=== PATIENT | female | born 1980 | race Caucasian/White ===

== ENCOUNTER 2016-09-22 22:02 | Inpatient (IN) | payer MEDICAID ==
[~2016-09-22] VITALS: Ht 165.1 cm; Wt 70.8 kg
[2016-09-22] MEDS ORDERED: TRAZ-144 PO (22:16)
[2016-09-22] MEDS ORDERED: VIST50 PO (22:16)
[2016-09-22] MEDS ORDERED: OLAN10TA3 PO (22:16)
[2016-09-22] MEDS ORDERED: GABA-533 PO (22:16)
[2016-09-22] MEDS ORDERED: ALPR0.5T8 PO (22:16)
[2016-09-22] MEDS ORDERED: BUPR1FIL3 SL (22:16)
[2016-09-22] MEDS ORDERED: LEVE500T53 PO (22:17)
[2016-09-22 22:34] LABS: BASOPHILS # (AUTO) 0.01 K/uL (0.00-0.20); BASOPHILS % (AUTO) 0.1 % (0.0-2.0); EOSINOPHILS # (AUTO) 0.21 K/uL (0.00-0.70); EOSINOPHILS % (AUTO) 2.48 % (1.0-6.0); HEMATOCRIT 28.9 % (36-46); HEMOGLOBIN 9.7 g/dL (12.0-16.0); LYMPHOCYTES # (AUTO) 0.8 K/uL (1.0-4.8); MEAN CORPUSCULAR HEMOGLOBIN 26.3 pg (26.0-34.0); MEAN CORPUSCULAR HGB CONC 33.5 G/dL (31.0-37.0); MEAN CORPUSCULAR VOLUME 79 fL (80-100); MONOCYTES # (AUTO) 0.5 K/uL (0.1-1.0); MONOCYTES % (AUTO) 5.7 % (2.0-9.0); NEUTROPHILS # (AUTO) 6.8 K/uL (1.8-7.7); NEUTROPHILS % (AUTO) 81.7 % (40.0-70.0); PLATELET COUNT (AUTO) 396 K/uL (150-450); RED BLOOD CELL COUNT(AUTO) 3.67 MIL/uL (4.00-5.20); RED CELL DISTRIBUTION WIDTH 18.3 % (11.5-14.5); WHITE BLOOD COUNT (AUTO) 8.3 K/uL (4.5-11.0)
[2016-09-22 22:35] LABS: RBC MORPHOLOGY COMMENT ABNORMAL RBC MORPH
[2016-09-22 22:42] LABS: ANION GAP 13 mmol/L (8-16); CARBON DIOXIDE 26 mmol/L (22-29); CHLORIDE 101 mmol/L (98-107); CREATININE 0.79 mg/dL (0.60-1.30); GLOMERULAR FILTR. RATE CALC > 60 mL/min (>60); POTASSIUM 3.9 mmol/L (3.5-5.1); SODIUM SERUM 140 mmol/L (136-145); UREA NITROGEN, BLOOD 13 mg/dL (7-18)
[2016-09-22 22:49] LABS: ALANINE AMINOTRANSFERASE 25 U/L (12-78); ALBUMIN 3.6 g/dL (3.4-5.0); ASPARTATE AMINOTRANSFERASE 24 U/L (15-37); BILIRUBIN,TOTAL 0.6 mg/dL (0.1-1.0); TOTAL PROTEIN, SERUM 7.8 g/dL (6.4-8.2)
[2016-09-22 23:02] LABS: SALICYLATE < 2.8 mg/dL (2.8-20.0)
[2016-09-22 23:06] LABS: ACETAMINOPHEN < 2 mcg/mL (10-30)
[2016-09-22] MEDS ORDERED: ZOLPIDEM TARTRATE 10 MG TABLET PO PRN (23:45)
[2016-09-23 03:01] VITALS: BP 113/85
[2016-09-23 08:31] VITALS: BP 121/76
[2016-09-23] MEDS: LevETIRAcetam 500 MG TABLET PO SCH ×3 (08:33→17:14)
[2016-09-23] MEDS: NICOTINE 21 MG/24 HOUR PATCH TD SCH (08:33)
[2016-09-23] MEDS: GABAPENTIN 400 MG CAPSULE PO SCH ×3 (08:34→17:14)
[2016-09-23] MEDS: BACITRACIN 28.4 GM OINTMENT TP SCH ×2 (08:35→17:17)
[2016-09-23] MEDS ORDERED: OLANZapine 5 MG TABLET PO SCH (09:00)
[2016-09-23] MEDS ORDERED: ALPRAZolam 0.5 MG TABLET PO SCH (09:00)
[2016-09-23] MEDS: LORazepam 0.5 MG TABLET PO SCH ×2 (12:37→17:13)
[2016-09-23 16:30] VITALS: BP 111/75
[2016-09-23] MEDS: OLANZapine 10 MG TABLET PO SCH (20:07)
[2016-09-23] MEDS ORDERED: TraZODone HCL 50 MG TABLET PO SCH (21:00)
[2016-09-24 04:42] VITALS: BP 116/81
[2016-09-24] MEDS: LORazepam 2 MG TABLET PO PRN ×2 (04:45→13:32)
[2016-09-24 08:05] VITALS: BP 127/66
[2016-09-24] MEDS: GABAPENTIN 400 MG CAPSULE PO SCH ×3 (08:46→16:36)
[2016-09-24] MEDS: NICOTINE 21 MG/24 HOUR PATCH TD SCH (08:46)
[2016-09-24] MEDS: LevETIRAcetam 500 MG TABLET PO SCH ×3 (08:46→16:36)
[2016-09-24] MEDS: FLUoxetine HCL 20 MG CAPSULE PO SCH (08:46)
[2016-09-24] MEDS: BACITRACIN 28.4 GM OINTMENT TP SCH ×2 (08:50→16:38)
[2016-09-24] MEDS ORDERED: LORazepam 0.5 MG TABLET PO SCH (09:00)
[2016-09-24] MEDS: OLANZapine 10 MG TABLET PO SCH (20:41)
[2016-09-25 04:35] VITALS: BP 124/77
[2016-09-25 08:13] VITALS: BP 120/72
[2016-09-25] MEDS: FLUoxetine HCL 20 MG CAPSULE PO SCH (08:29)
[2016-09-25] MEDS: GABAPENTIN 400 MG CAPSULE PO SCH ×3 (08:29→16:01)
[2016-09-25] MEDS: NICOTINE 21 MG/24 HOUR PATCH TD SCH (08:34)
[2016-09-25 08:44] LABS: APPEARANCE,URINE CLEAR (CLEAR); GLUCOSE, URINE (UA) NEGATIVE (NEGATIVE); KETONES,URINE NEGATIVE (NEGATIVE); LEUKOCYTE ESTERASE ,URINE NEGATIVE (NEGATIVE); OCCULT BLOOD,URINE NEGATIVE (NEGATIVE); PROTEIN,URINE NEGATIVE (NEGATIVE)
[2016-09-25 08:46] LABS: ADD UA MICROSCOPIC NO
[2016-09-25] MEDS: BACITRACIN 28.4 GM OINTMENT TP SCH ×2 (09:18→16:42)
[2016-09-25] MEDS: LevETIRAcetam 500 MG TABLET PO SCH ×3 (10:05→16:01)
[2016-09-25] MEDS: LORazepam 0.5 MG TABLET PO SCH ×2 (10:11→16:01)
[2016-09-25 16:05] VITALS: BP 127/80
[2016-09-25] MEDS: TraZODone HCL 50 MG TABLET PO SCH (21:00)
[2016-09-25] MEDS: OLANZapine 10 MG TABLET PO SCH (21:00)
[2016-09-26 02:24] VITALS: BP 115/74
[2016-09-26 08:00] VITALS: BP 110/63
[2016-09-26] MEDS: FLUoxetine HCL 20 MG CAPSULE PO SCH (08:34)
[2016-09-26] MEDS: NICOTINE 21 MG/24 HOUR PATCH TD SCH (08:34)
[2016-09-26] MEDS: GABAPENTIN 400 MG CAPSULE PO SCH ×3 (08:35→16:39)
[2016-09-26] MEDS: LevETIRAcetam 500 MG TABLET PO SCH ×3 (08:35→16:38)
[2016-09-26] MEDS: BACITRACIN 28.4 GM OINTMENT TP SCH ×2 (08:36→16:40)
[2016-09-26] MEDS ORDERED: LORazepam 0.5 MG TABLET PO ONE (09:00)
[2016-09-26] MEDS: HALOPERIDOL 5 MG TABLET PO PRN ×2 (09:56→13:54)
[2016-09-26] MEDS: MULTIVITAMINS WITH IRON TABLET PO SCH ×2 (09:56→16:39)
[2016-09-26 16:22] VITALS: BP 107/62
[2016-09-26] MEDS: QUEtiapine FUMARATE 100 MG TABLET PO PRN (16:38)
[2016-09-26] MEDS: OLANZapine 10 MG TABLET PO SCH (20:10)
[2016-09-26] MEDS: TraZODone HCL 50 MG TABLET PO SCH (20:10)
[2016-09-27 04:50] VITALS: BP 100/71
[2016-09-27 08:33] VITALS: BP 101/68
[2016-09-27] MEDS: MULTIVITAMINS WITH IRON TABLET PO SCH ×2 (08:39→16:52)
[2016-09-27] MEDS: GABAPENTIN 400 MG CAPSULE PO SCH ×3 (08:39→16:52)
[2016-09-27] MEDS: FLUoxetine HCL 20 MG CAPSULE PO SCH (08:39)
[2016-09-27] MEDS: BACITRACIN 28.4 GM OINTMENT TP SCH ×2 (08:39→16:52)
[2016-09-27] MEDS: QUEtiapine FUMARATE 100 MG TABLET PO PRN ×2 (08:39→14:05)
[2016-09-27] MEDS: NICOTINE 21 MG/24 HOUR PATCH TD SCH (08:39)
[2016-09-27] MEDS: LevETIRAcetam 500 MG TABLET PO SCH ×3 (08:39→16:52)
[2016-09-27 16:28] VITALS: BP 109/76
[2016-09-27] MEDS: HydrOXYzine PAMOATE 25 MG CAPSULE PO PRN (17:47)
[2016-09-27] MEDS: OLANZapine 10 MG TABLET PO SCH (20:51)
[2016-09-27] MEDS ORDERED: TraZODone HCL 100 MG TABLET PO SCH (21:00)
[2016-09-28 00:41] VITALS: BP 112/69
[2016-09-28 08:14] VITALS: BP 119/68
[2016-09-28] MEDS: HydrOXYzine PAMOATE 25 MG CAPSULE PO PRN ×2 (08:29→13:38)
[2016-09-28] MEDS: LevETIRAcetam 500 MG TABLET PO SCH ×3 (08:29→16:22)
[2016-09-28] MEDS: QUEtiapine FUMARATE 100 MG TABLET PO PRN ×2 (08:29→13:38)
[2016-09-28] MEDS: GABAPENTIN 400 MG CAPSULE PO SCH ×3 (08:29→16:22)
[2016-09-28] MEDS: NICOTINE 21 MG/24 HOUR PATCH TD SCH (08:29)
[2016-09-28] MEDS: MULTIVITAMINS WITH IRON TABLET PO SCH ×2 (08:29→16:22)
[2016-09-28] MEDS: BACITRACIN 28.4 GM OINTMENT TP SCH ×2 (08:30→16:22)
[2016-09-28] MEDS ORDERED: FLUoxetine HCL 20 MG CAPSULE PO SCH (09:00)
[2016-09-28 16:05] VITALS: BP 132/86
[2016-09-28] MEDS: OLANZapine 10 MG TABLET PO SCH (20:30)
[2016-09-28] MEDS ORDERED: TraZODone HCL 100 MG TABLET PO SCH (21:00)
[2016-09-29 04:28] VITALS: BP 100/60
[2016-09-29] MEDS ORDERED: FLUO-191 PO (08:00)
[2016-09-29 08:22] LABS: BASOPHILS # (AUTO) 0.09 K/uL (0.00-0.20); BASOPHILS % (AUTO) 1.5 % (0.0-2.0); EOSINOPHILS # (AUTO) 0.17 K/uL (0.00-0.70); EOSINOPHILS % (AUTO) 2.72 % (1.0-6.0); HEMATOCRIT 38.8 % (36-46); HEMOGLOBIN 12.5 g/dL (12.0-16.0); LYMPHOCYTES # (AUTO) 2.1 K/uL (1.0-4.8); LYMPHOCYTES % (AUTO) 34.3 % (22.0-44.0); MEAN CORPUSCULAR HEMOGLOBIN 25.6 pg (26.0-34.0); MEAN CORPUSCULAR HGB CONC 32.2 G/dL (31.0-37.0); MEAN CORPUSCULAR VOLUME 79 fL (80-100); MONOCYTES # (AUTO) 0.4 K/uL (0.1-1.0); NEUTROPHILS # (AUTO) 3.4 K/uL (1.8-7.7); NEUTROPHILS % (AUTO) 55.6 % (40.0-70.0); PLATELET COUNT (AUTO) 397 K/uL (150-450); RED BLOOD CELL COUNT(AUTO) 4.89 MIL/uL (4.00-5.20); WHITE BLOOD COUNT (AUTO) 6.1 K/uL (4.5-11.0)
[2016-09-29] MEDS: GABAPENTIN 400 MG CAPSULE PO SCH (08:38)
[2016-09-29] MEDS: MULTIVITAMINS WITH IRON TABLET PO SCH (08:38)
[2016-09-29] MEDS: NICOTINE 21 MG/24 HOUR PATCH TD SCH (08:38)
[2016-09-29] MEDS: LevETIRAcetam 500 MG TABLET PO SCH (08:38)
[2016-09-29] MEDS: BACITRACIN 28.4 GM OINTMENT TP SCH (08:42)
[2016-09-29 08:50] VITALS: BP 114/73
[2016-09-29] MEDS ORDERED: FLUoxetine HCL 20 MG CAPSULE PO SCH (09:00)
[2016-09-29 10:59] LABS: RBC MORPHOLOGY COMMENT ABNORMAL RBC MORPH
== END 2016-09-29 10:05 | disposition home or self-care (01) | DRG 751 ==
LOC: EMS 22:05 → B2S 09-23 00:13
PROVIDERS: ADMIT Psychiatry & Neurology Psychiatry; ATTEND Psychiatry & Neurology Psychiatry
DX: F29 Unspecified psychosis not due to a substance or known physiological condition (principal); F11.20 Opioid dependence, uncomplicated; R45.851 Suicidal ideations; F15.20 Other stimulant dependence, uncomplicated; D64.9 Anemia, unspecified; F32.9 Major depressive disorder, single episode, unspecified; F25.0 Schizoaffective disorder, bipolar type; Z59.0 Homelessness; Z79.899 Other long term (current) drug therapy; Z98.890 Other specified postprocedural states; Z81.1 Family history of alcohol abuse and dependence; Z84.89 Family history of other specified conditions
CPT/HCPCS: 93005; 99285; G0480; G0481; G0482